=== PATIENT | female | born 1955 | race Caucasian/White ===

== ENCOUNTER → 2017-08-26 | Day surgery (SDC) | payer OTHER ==
[~2017-08-26] MED LIST: ACETAMINOPHEN/HYDROcodone 325 MG/7.5 MG TAB ONE; AMBI5TAB PO; APREPITANT 40 MG CAP ONE; AZAT50 PO; BENI5TAB4 PO; BUPIVACAINE/EPINEPHRINE 0.25% 50 ML VIAL ONE; DARV PO; LACTATED RINGER'S 1000 ML INJ 1,000 ML ONE; MEPERIDINE HCL 50 MG/ML VIAL ONE; MIDAZOLAM HCL 2 MG/2 ML VIAL ONE; ONDANSETRON HCL 4 MG/2 ML VIAL IV PUSH ONE; PEMPRO BU; PRIL20TA2 PO; PROMETHAZINE INJ 25 MG/ML VIAL ONE; PROPOFOL 200 MG/20 ML AMP IV ONE; TRI BU; ceFAZolin INJ 1,000 MG VIAL ONE
--- NOTE | 2017-08-26 12:33 | TN ---
cc: Schuyler Zuniga MD DATE OF SURGERY: 08/26/2017 DATE OF PROCEDURE: 08/26/2017 PREOPERATIVE DIAGNOSES: 1. Chronic periumbilical and left lower quadrant abdominal pain. 2. History of an umbilical hernia repair. POSTOPERATIVE DIAGNOSES: 1. Chronic periumbilical and left lower quadrant abdominal pain. 2. History of an umbilical hernia repair. 3. Extensive omental adhesions to umbilical mesh. 2. No evidence of left lower quadrant adhesions. 3. Normal-appearing descending and sigmoid colon. 4. Normal-appearing uterus and ovaries. PROCEDURE PERFORMED: 1. Diagnostic laparoscopy. 2. Laparoscopic lysis of adhesions. SURGEON: Schuyler Zuniga MD ANESTHESIA: General endotracheal. COMPLICATIONS: None. INDICATIONS FOR PROCEDURE: Ms. Villarreal is a pleasant 62-year-old female who has had longstanding problems with chronic periumbilical abdominal pain and left lower quadrant abdominal pain. She is a patient of Dr. Curt Alatorre and Dr. Shana Beltrán. She has undergone a very extensive workup for her chronic abdominal pain. She was referred over for surgical evaluation for consideration of a diagnostic laparoscopy, possible lysis of adhesions. She does have a surgical history of undergoing an umbilical hernia repair in the past. The patient was seen and evaluated in the office. Risks and benefits of diagnostic laparoscopy and lysis of adhesions was discussed with her, including the fact that there may be no significant findings. She was very frustrated with her chronic pain and wished to proceed with surgery as she felt that she had no other option left. DETAILS OF PROCEDURE: The patient was identified, brought to the operating room, placed supine on the operating table. After adequate general endotracheal anesthesia was achieved, the abdomen was prepped and draped in standard surgical fashion. A 0.25% Marcaine was injected in the skin and subcutaneous tissue in the right subcostal area. Right subcostal incision was made. Dissection was carried down through subcutaneous tissue to the anterior abdominal wall fascia. Anterior abdominal wall fascia was then incised sharply. Abdominal muscles were then spread along the course of their fibers. Peritoneum was then grasped, elevated, and divided sharply. A finger was then placed in the peritoneal cavity without difficulty. Blunt balloon trocar was inserted, and the abdomen was insufflated to 15 mmHg using CO2 gas. We then inserted the 30-degree, 10 mm laparoscope. Immediately, we noted extreme omental adhesions to the periumbilical region where the patient had an obvious large umbilical mesh. A 5 mm port site was then placed in the right middle quadrant under direct vision after anesthetizing the skin and subcutaneous tissue with 0.25% Marcaine. Attention was first directed to the omentum, which was carefully dissected down off of the omental mesh using blunt limited electrocautery and limited electrocautery dissection in order to free the omentum up completely. All bleeding points were grasped and controlled with electrocautery Bovie. There was no bowel adhesed to the mesh, rather this was just omentum that did originate from the transverse colon, but the transverse colon was not involved in the adhesions to the mesh. Once all the omentum was completely freed up, the mesh patch was inspected. There was no evidence of a defect in the mesh patch and there is no evidence of recurrent hernia. The omentum was carefully inspected and several small bleeding points were grasped, elevated, and then gently bovied with the electrocautery Bovie. Care was taken to stay away from the bowel during any of the Bovie procedure. Once we did this, the patient was then placed in steep Trendelenburg position and the pelvis was inspected. The patient had a large, boggy uterus and several ovarian cysts. These were photographed on both sides. There were no gross abnormalities noted. The sigmoid colon was then carefully inspected and there was no evidence of adhesions. No evidence of thickening, or diverticula noted. There was no inflammatory change of the colon. At this point, I felt I had formally evaluated the 2 sites of the patient's pain. The abdominal cavity was rinsed out and the effluent was inspected. There was no evidence of any succuss entericus or any other signs of bowel injury. Again, the bleeding points in the omentum were inspected and there was a minimal amount of ooze and no significant blood accumulation and therefore no additional electrocautery was performed. I elected next to place some Seprafilm on the omentum between the umbilical mesh and the omentum. The Seprafilm was cut into long thin pieces and placed on top of the omentum via the 10 mm port site. All pieces of paper that were used to apply the Seprafilm were removed under direct vision. At this point, there were no other abnormalities noted. 0.25% Marcaine was injected into the abdominal cavity, 30 mL. The abdomen was then carefully desufflated and the omentum was seen to completely cover the small bowel, so there was no chance of it getting stuck to the umbilical mesh. All trocars were then removed under direct vision. The abdominal fascia was then closed with 0 Vicryl in a [id number] fashion. The skin was closed with 4-0 Vicryl. The patient tolerated the procedure well. She was awakened and brought to the recovery room in stable condition. Schuyler MD NEVA Atkins/MICHELLE , 12:02 PM , 12:32 PM
== END | disposition home or self-care (01) ==
LOC: ESDC 08:51
PROVIDERS: ATTEND Surgery Trauma Surgery
DX: K66.0 Peritoneal adhesions (postprocedural) (postinfection) (principal); R10.32 Left lower quadrant pain; R10.33 Periumbilical pain
CPT/HCPCS: 00840; 49329; C1765; J0690; J2175; J2250; J2405; J2550; J7120; J8501